=== PATIENT | male | born 1990 | race Caucasian/White ===

== ENCOUNTER 2018-05-30 17:27 | Emergency (ER) | payer SELFPAY ==
[2018-05-30] MEDS ORDERED: KETOROLAC TROMETHAMINE INJ/PF 30 MG/1 ML SDV IV ONE (18:34)
[2018-05-30] MEDS ORDERED: NORMAL SALINE 1000 ML 1,000 ML IV ONE ×2 (18:34→19:27)
[2018-05-30] MEDS ORDERED: MORPHINE SULFATE 10 MG/ML INJ IV ONE (18:34)
[2018-05-30] MEDS ORDERED: ONDANSETRON HCL INJ/PF 4 MG/2 ML SDV IV ONE (18:34)
[2018-05-30] MEDS ORDERED: DIAZEPAM 2 MG TABLET PO ONE (18:36)
--- NOTE | 2018-05-30 18:38 | ER Document Report ---
ED Medical Screen (RME) - General Chief Complaint: Vomiting Stated Complaint: VOMITING BLOOD/ABDOMINAL PAIN Time Seen by Provider: 05/30/18 18:27 Notes: 27 years old male has been vomiting for the last 4-5 days, today while he was doing strenuous work at the workplace suddenly felt a sharp pain on the left mid rectus abdominal muscle region. And since then each time he straighten his back the pain is increased in intensity he has to flex his body to partially relieve the pain. He also noted today while vomiting some blood. Denies any constipation but states he has bowel movement once in 2-3 days. No fever chills or other constitutional symptoms. Denies any dysuria frequency urgency. No significant past medical history Smokes cigarettes and cannabis On examination-sharp tenderness over the left lower rectus abdominal muscles were noted with ventral hernia on coughing. TRAVEL OUTSIDE OF THE [place] IN LAST 30 DAYS: No - Related Data Allergies/Adverse Reactions: No Known Allergies Allergy (Unverified 05/30/18 18:26) Past Medical History - Social History Chew tobacco use (# tins/day): No Renal/ Medical History: Denies: Hx Peritoneal Dialysis Physical Exam - Vital signs Vitals: Temp Pulse Resp BP Pulse Ox 99.0 F 92 16 149/74 H 99 05/30/18 18:14 05/30/18 18:14 05/30/18 18:14 05/30/18 18:14 05/30/18 18:14 Course - Vital Signs Vital signs: Temp Pulse Resp BP Pulse Ox 99.0 F 92 16 149/74 H 99 05/30/18 18:14 05/30/18 18:14 05/30/18 18:14 05/30/18 18:14 05/30/18 18:14
[2018-05-30 19:16] LABS: ABSOLUTE BASOPHILS # (AUTO) 0.1 10^3/uL (0.0-0.2); ABSOLUTE LYMPHOCYTES (AUTO) 1.1 10^3/uL (0.5-4.7); ABSOLUTE MONOCYTES (AUTO) 0.7 10^3/uL (0.1-1.4); ABSOLUTE NEUT (AUTO) 14.1 10^3/uL (1.7-8.2); BASOPHILS % (AUTO) 0.3 % (0-2); EOSINOPHILS % (AUTO) 0.2 % (0-6); HEMATOCRIT 53.9 % (37.9-51.0); MEAN CORPUSCULAR HEMOGLOBIN 30.9 pg (27.0-33.4); MEAN CORPUSCULAR HGB CONC 35.3 g/dL (32.0-36.0); MEAN CORPUSCULAR VOLUME 88 fl (80-97); MONOCYTES % (AUTO) 4.2 % (3-13); PLATELET COUNT 222 10^3/uL (150-450); RED BLOOD COUNT 6.16 10^6/uL (4.35-5.55); RED CELL DISTRIBUTION WIDTH 13.3 % (11.5-14.0); SEGMENTED NEUTROPHILS % (AUTO) 88.3 % (42-78); TOTAL CELLS COUNTED % (AUTO) 100 %; WHITE BLOOD COUNT 15.9 10^3/uL (4.0-10.5)
--- NOTE | 2018-05-30 19:30 | ER Document Report ---
ED GI/ - General Chief Complaint: Vomiting Stated Complaint: VOMITING BLOOD/ABDOMINAL PAIN Time Seen by Provider: 05/30/18 18:27 Notes: Patient is a 27 year old male that comes to the ED for chief complaint of upper abdominal pain, vomiting, and an episode earlier where he vomited some blood. He states there is mixed in blood in the vomit. He states for the past week every morning when he gets up he vomits once but over the past day he has had several episodes of vomiting with the latest having some blood in it. He denies black stools, states had a bowel movement yesterday that was normal, denies fever or chills. He denies any surgeries, denies any daily medications, occasionally takes ibuprofen. He has been working outside all day. He notes that he can barely move without getting bad muscle cramps. He states that he does smoke, he drinks occasional alcohol, he smokes marijuana occasionally, denies other recreational drugs. TRAVEL OUTSIDE OF THE [place] IN LAST 30 DAYS: No - Related Data Allergies/Adverse Reactions: No Known Allergies Allergy (Unverified 05/30/18 18:26) Past Medical History - General Information source: Patient - Social History Smoking Status: Current Every Day Smoker Chew tobacco use (# tins/day): No Smoking Education Provided: Yes - <3 min Frequency of alcohol use: Occasional Drug Abuse: None Lives with: Family Family History: Reviewed & Not Pertinent Patient has suicidal ideation: No Patient has homicidal ideation: No Renal/ Medical History: Denies: Hx Peritoneal Dialysis - Immunizations Hx Diphtheria, Pertussis, Tetanus Vaccination: Yes Review of Systems - Review of Systems Constitutional: See HPI EENT: No symptoms reported Cardiovascular: No symptoms reported Respiratory: No symptoms reported Gastrointestinal: See HPI Genitourinary: No symptoms reported Male Genitourinary: No symptoms reported Musculoskeletal: No symptoms reported Skin: No symptoms reported Hematologic/Lymphatic: No symptoms reported Neurological/Psychological: No symptoms reported Physical Exam - Vital signs Vitals: Temp Pulse Resp BP Pulse Ox 99.0 F 92 16 149/74 H 99 05/30/18 18:14 05/30/18 18:14 05/30/18 18:14 05/30/18 18:14 05/30/18 18:14 - Notes Notes: GENERAL: Alert, interacts well. Patient is very dirty and sweaty EYES: Pupils equal, round, and reactive to light. Extraocular movements intact. ENT: Oral mucosa very dry, tongue midline. NECK: Full range of motion. Supple. Trachea midline. LUNGS: Clear to auscultation bilaterally, no wheezes, rales, or rhonchi. No respiratory distress. HEART: Regular rate and rhythm. No murmur ABDOMEN: Generalized upper abdominal tenderness. No hernia noted. No guarding. Non-distended. Bowel sounds present in all 4 quadrants. EXTREMITIES: Moves all 4 extremities spontaneously. No edema, normal radial and dorsalis pedis pulses bilaterally. No cyanosis. BACK: no cervical, thoracic, lumbar midline tenderness. No saddle anesthesia, normal distal neurovascular exam. NEUROLOGICAL: Alert and oriented x3. Normal speech. [cranial nerves II through XII grossly intact]. PSYCH: Normal affect, normal mood. SKIN: Sweaty and dirty, otherwise unremarkable Course - Re-evaluation Re-evalutation: Patient with dry mucous membranes, generalized upper abdominal tenderness, appears to have been working outside all day. His described symptoms of vomiting in the morning and then having progressive symptoms which resulted in multiple episodes of vomiting and vomiting a small amount of blood today are suggestive of upper abdominal inflammation. He denies any black or bloody stools. Ultrasound was performed of the abdomen and this is unremarkable except for questionable dilated duct. Initial CBC and chemistry are concerning , leukocytosis, elevated hemoglobin consistent with dehydration, acute renal insufficiency, hyperkalemia, dehydration shift. Surprisingly CK is normal. Labs repeated after hydration, patient tolerating p.o. without any difficulty, no additional vomiting, no additional complaints. He states he feels much better now. CBC much improved, hyperkalemia resolved, acute renal insufficiency almost completely resolved. Bilirubin and liver functioning tests normalized instead of worsening. As result I have very low suspicion of common bile duct dilation from obstruction, appears to be gastritis/esophagitis with acute dehydration and heat stroke. Discussed with patient and , discussed return precautions in detail, discussed follow-up, provided with work note for tomorrow for patient to rest, they state understanding and agreement with plan. - Vital Signs Vital signs: Temp Pulse Resp BP Pulse Ox 99.0 F 80 14 138/80 H 99 05/30/18 18:14 05/31/18 01:27 05/31/18 01:27 05/31/18 01:27 05/30/18 18:14 - Laboratory Result Diagrams: 05/30/18 23:31 05/30/18 23:31 Laboratory results interpreted by me: 05/30/18 05/30/18 05/30/18 18:58 18:58 18:58 WBC 15.9 H RBC 6.16 H Hgb 19.0 H Hct 53.9 H Seg Neutrophils % 88.3 H Lymphocytes % 7.0 L Absolute Neutrophils 14.1 H Potassium 5.6 H Chloride 94 L Anion Gap 23 H BUN 28 H Creatinine 2.12 H Est GFR ( Amer) 45 L Est GFR (Non-Af Amer) 37 L Calcium 11.9 H Total Bilirubin 1.4 H Direct Bilirubin 0.5 H AST 67 H ALT 151 H Total Protein 11.1 H Albumin 6.4 H Urine Protein 100 H Urine Ketones TRACE H Urine Blood SMALL H Urine Bilirubin SMALL H Urine Urobilinogen 4.0 H Ur Leukocyte Esterase TRACE H 05/30/18 05/30/18 23:31 23:31 WBC 12.0 H RBC Hgb Hct Seg Neutrophils % Lymphocytes % Absolute Neutrophils Potassium Chloride Anion Gap BUN 26 H Creatinine 1.39 H Est GFR ( Amer) Est GFR (Non-Af Amer) Calcium Total Bilirubin Direct Bilirubin AST ALT 108 H Total Protein Albumin Urine Protein Urine Ketones Urine Blood Urine Bilirubin Urine Urobilinogen Ur Leukocyte Esterase Discharge - Discharge Clinical Impression: Dehydration, Hyperkalemia, Acute renal insufficiency Vomiting Qualifiers: Vomiting type: unspecified Vomiting Intractability: non-intractable Nausea presence: with nausea Qualified Code(s): R11.2 - Nausea with vomiting, unspecified Condition: Stable Disposition: HOME, SELF-CARE Additional Instructions: Your evaluation is consistent with heatstroke, dehydration, acute renal insufficiency, and abnormal electrolytes. This was almost completely resolved with treatment here. Drink plenty of fluids over the next day, rest, take Carafate and Pepcid as prescribed. Take Phenergan if needed for nausea. Your symptoms are also consistent with gastritis, along with the medications above avoid alcohol, smoking, NSAIDs, caffeine, spicy food. Follow-up with primary care for additional management. Return if you worsen including returned vomiting, vomiting blood, black stools, severe abdominal pain, passing out, fever, or any other concerning symptoms. Prescriptions: Famotidine [Pepcid 20 mg Tablet] 20 mg PO BID #20 tablet Promethazine HCl [Phenergan 25 mg Tablet] 25 mg PO Q6H PRN #20 tablet PRN Reason: Sucralfate [Carafate 1 gm Tablet] 1 gm PO QID #20 tablet Forms: Return to Work
[2018-05-30 19:33] LABS: ALANINE AMINOTRANSFERASE 151 U/L (21-72); ALKALINE PHOSPHATASE 64 U/L (38-126); ASPARTATE AMINO TRANSFERASE 67 U/L (17-59); BILIRUBIN,DIRECT 0.5 mg/dL (0.0-0.4); BILIRUBIN,TOTAL 1.4 mg/dL (0.2-1.3); BLOOD UREA NITROGEN 28 mg/dL (7-20); GLUCOSE 104 mg/dL (75-110); LIPASE 94.8 U/L (23-300); POTASSIUM 5.6 mmol/L (3.6-5.0)
[2018-05-30 19:38] LABS: CARBON DIOXIDE 25 mmol/L (22-30); CHLORIDE 94 mmol/L (98-107); SODIUM 141.5 mmol/L (137-145)
[2018-05-30 19:39] LABS: CALCIUM 11.9 mg/dL (8.4-10.2)
[2018-05-30 19:40] LABS: APPEARANCE,URINE CLOUDY; BILIRUBIN,URINE SMALL (NEGATIVE); GLUCOSE, URINE NEGATIVE (NEGATIVE); KETONES,URINE TRACE mg/dL (NEGATIVE); LEUKOCYTE ESTERASE,URINE TRACE (NEGATIVE); NITRITE,URINE NEGATIVE (NEGATIVE); PROTEIN,URINE 100 mg/dL (NEGATIVE); URINE SPECIFIC GRAVITY 1.023
[2018-05-30 19:41] LABS: COLOR,URINE YELLOW
[2018-05-30 19:57] LABS: ALBUMIN 6.4 g/dL (3.5-5.0); ANION GAP 23 (5-19); TOTAL PROTEIN 11.1 g/dL (6.3-8.2)
--- NOTE | 2018-05-30 21:37 | RADIOLOGY REPORT (SQ) ---
EXAM DESCRIPTION: U/S ABDOMEN LIMITED W/O DOP COMPLETED DATE/TIME: 05/30/2018 9:23 pm REASON FOR STUDY: upper abd pain, vomiting COMPARISON: None. TECHNIQUE: Dynamic and static grayscale images acquired of the abdomen and recorded on PACS. Kalyno kennedy selected color Doppler and spectral images recorded. LIMITATIONS: None. FINDINGS: PANCREAS: No masses. Visualized pancreatic duct normal caliber. LIVER: 13.2 cm. Normal echotexture. LIVER VASCULATURE: Normal directional flow of the main portal vein and hepatic veins. GALLBLADDER: No stones. Normal wall thickness. No pericholecystic fluid. ULTRASOUND-DETECTED POON'S SIGN: Negative. INTRAHEPATIC DUCTS AND COMMON DUCT: Common bile duct is borderline at 6 mm. INFERIOR VENA CAVA: Normal flow. AORTA: No aneurysm. RIGHT KIDNEY: Normal size, 11.9 cm. Normal echogenicity. No solid or suspicious masses. No hydroneph rosis. No calcifications. PERITONEAL AND RIGHT PLEURAL SPACE: No ascites or effusions. OTHER: No other significant findings. IMPRESSION: Borderline common bile duct is 6 mm. Correlate for biliary obstruction. The gallbladde r is normal. TECHNICAL DOCUMENTATION: JOB ID: [id number] [employer]- All Rights Reserved Reading location - IP/workstation name: [email or web address]
[2018-05-30] MEDS ORDERED: SUCRALFATE 1 GM TABLET PO ONE (22:03)
[2018-05-30] MEDS ORDERED: FAMOTIDINE 20 MG TABLET PO ONE (22:03)
[2018-05-30] MEDS ORDERED: OXYCODONE-ACETAMINOPHEN 5-325 MG TABLET PO ONE (22:05)
[2018-05-30 23:43] LABS: HEMATOCRIT 45.4 % (37.9-51.0); MEAN CORPUSCULAR HEMOGLOBIN 30.9 pg (27.0-33.4); MEAN CORPUSCULAR HGB CONC 35.3 g/dL (32.0-36.0); MEAN CORPUSCULAR VOLUME 88 fl (80-97); PLATELET COUNT 168 10^3/uL (150-450); RED BLOOD COUNT 5.19 10^6/uL (4.35-5.55); RED CELL DISTRIBUTION WIDTH 13.1 % (11.5-14.0)
[2018-05-30 23:44] LABS: HEMOGLOBIN 16.1 g/dL (13.5-17.0)
[2018-05-30 23:52] LABS: ALANINE AMINOTRANSFERASE 108 U/L (21-72); ALBUMIN 4.7 g/dL (3.5-5.0); ALKALINE PHOSPHATASE 42 U/L (38-126); ANION GAP 12 (5-19); ASPARTATE AMINO TRANSFERASE 45 U/L (17-59); BILIRUBIN,DIRECT 0.2 mg/dL (0.0-0.4); BILIRUBIN,TOTAL 1.1 mg/dL (0.2-1.3); BLOOD UREA NITROGEN 26 mg/dL (7-20); CALCIUM 9.3 mg/dL (8.4-10.2); CARBON DIOXIDE 26 mmol/L (22-30); CHLORIDE 102 mmol/L (98-107); GLUCOSE 96 mg/dL (75-110)
[2018-05-30 23:56] LABS: POTASSIUM 4.6 mmol/L (3.6-5.0)
[2018-05-31] MEDS ORDERED: ONDANSETRON ODT 4 MG TAB (6 TAB/ER DISP) PO PRN (00:02)
[2018-05-31 01:30] VITALS: BP 138/80
--- NOTE | 2018-05-31 07:30 | EKG REPORT ---
SEVERITY:- NORMAL ECG - SINUS RHYTHM : Confirmed by: Abelardo Hooper MD 31-May-2018 07:29:42
== END 2018-05-31 01:30 | disposition home or self-care (01) ==
LOC: ER 17:27
DX: E86.0 Dehydration (principal); E87.5 Hyperkalemia; N28.9 Disorder of kidney and ureter, unspecified; R11.2 Nausea with vomiting, unspecified; R10.10 Upper abdominal pain, unspecified; F17.200 Nicotine dependence, unspecified, uncomplicated
CPT/HCPCS: 93005; 99284; 96361; 96374; 96375; 36415; 82550; 83690; 85025; 85027; 80053; 81001; 76705; 93010; J3490; J1885; J2270; J2405; J7030

== ENCOUNTER 2019-05-29 06:00 | Emergency (ER) | payer SELFPAY ==
[2019-05-29 06:45] LABS: APPEARANCE,URINE CLEAR; BILIRUBIN,URINE NEGATIVE (NEGATIVE); COLOR,URINE YELLOW; GLUCOSE, URINE NEGATIVE (NEGATIVE); KETONES,URINE TRACE mg/dL (NEGATIVE); LEUKOCYTE ESTERASE,URINE NEGATIVE (NEGATIVE); NITRITE,URINE NEGATIVE (NEGATIVE); PROTEIN,URINE NEGATIVE (NEGATIVE); URINE SPECIFIC GRAVITY 1.026
--- NOTE | 2019-05-29 06:49 | ER Document Report ---
ED Psych Disorder / Suicide - General Chief Complaint: Psych Problem Stated Complaint: PSYCH Time Seen by Provider: 05/29/19 06:34 Mode of Arrival: Ambulatory Information source: Patient, Friend, [facility] Records Notes: This 28-year-old male patient brought the emergency room by his friend for depr ession and suicidal ideation. Patient states he has been wanting to hurt himself and thinking about hurting other people around him who are trying to be helpful. He states is been going on for greater than 1 year. He has a fairly long history of substance abuse with his spouse as a participant. Recently his spouse decided to stop and straighten out her life, he was unwilling to, so 2 and half weeks ago she left with their child. Since this occurred, his drug abuse is increased, his depression is increased. Patient states he last slept about 4 hours on Sunday night. His last alcohol was few days ago, where he had 1 or 2 beers. A day or so before that he drank over case. His last drug use was crack cocaine this evening. He uses THC, meth, crack, reports some heroin use 2 years ago. He has never sought help for substance abuse in the past. He is gainfully employed with a [employer]. TRAVEL OUTSIDE OF THE [place] IN LAST 30 DAYS: No - Related Data Allergies/Adverse Reactions: No Known Allergies Allergy (Verified 05/29/19 06:01) Past Medical History - General Information source: Patient, Friend, [facility] Records - Social History Smoking Status: Current Every Day Smoker Cigarette use (# per day): Yes - Normally 1/2 PPD Chew tobacco use (# tins/day): No Smoking Education Provided: No Frequency of alcohol use: Heavy Drug Abuse: Cocaine, Marijuana, Methamphetamine Occupation: Global Engineering Manager Lives with: Alone Family History: Reviewed & Not Pertinent Patient has suicidal ideation: Yes Patient has homicidal ideation: No - Medical History Medical History: Negative Surgical Hx: Negative - Immunizations Hx Diphtheria, Pertussis, Tetanus Vaccination: Yes Review of Systems - Review of Systems Constitutional: No symptoms reported EENT: No symptoms reported Cardiovascular: No symptoms reported Respiratory: No symptoms reported Gastrointestinal: No symptoms reported Genitourinary: No symptoms reported Musculoskeletal: No symptoms reported Skin: No symptoms reported Hematologic/Lymphatic: No symptoms reported Neurological/Psychological: Depression, Suicidal ideation Physical Exam - Vital signs Vitals: Temp Pulse Resp BP Pulse Ox 98.4 F 103 H 20 175/105 H 97 05/29/19 06:06 05/29/19 06:06 05/29/19 06:06 05/29/19 06:06 05/29/19 06:06 - General General appearance: Appears well, Alert In distress: None Notes: Depressed, mostly looks downward avoiding eye contact. - HEENT Head: Normocephalic, Atraumatic Eyes: Normal Pupils: PERRL - Respiratory Respiratory status: No respiratory distress - Cardiovascular Rhythm: Regular Heart sounds: Normal auscultation Murmur: No - Abdominal Inspection: Normal - Back Back: Normal - Extremities General upper extremity: Normal inspection General lower extremity: Normal inspection - Neurological Neuro grossly intact: Yes - Psychological Associated symptoms: Depressed, Unable to sleep, Other - Poor eye contact - Skin Skin Temperature: Warm Skin Moisture: Dry Skin Color: Normal Course - Vital Signs Vital signs: Temp Pulse Resp BP Pulse Ox 98.4 F 103 H 20 175/105 H 97 05/29/19 06:06 05/29/19 06:06 05/29/19 06:06 05/29/19 06:06 05/29/19 06:06 - Laboratory Result Diagrams: 05/29/19 06:24 05/29/19 06:24 Laboratory results interpreted by me: 05/29/19 05/29/19 06:24 06:24 Glucose 116 H Albumin 5.1 H Urine Ketones TRACE H Urine Urobilinogen 2.0 H Salicylates < 1.0 L Acetaminophen < 10 L - EKG Interpretation by Mn EKG shows normal: Sinus rhythm, [place], Intervals, QRS Complexes, ST-T Waves Rate: Normal - 90 Rhythm: NSR Discharge - Discharge Clinical Impression: Suicidal ideation, Multiple substance abuse, Cocaine abuse Depression Qualifiers: Depression Type: unspecified Qualified Code(s): F32.9 - Major depressive disorder, single episode, unspecified Condition: Stable Disposition: PSYCH HOSP/UNIT
[2019-05-29 06:59] LABS: ABSOLUTE BASOPHILS # (AUTO) 0.1 10^3/uL (0.0-0.2); ABSOLUTE EOSINOPHILS # (AUTO) 0.1 10^3/uL (0.0-0.6); ABSOLUTE LYMPHOCYTES (AUTO) 1.7 10^3/uL (0.5-4.7); ABSOLUTE MONOCYTES (AUTO) 0.8 10^3/uL (0.1-1.4); ABSOLUTE NEUT (AUTO) 6.9 10^3/uL (1.7-8.2); BASOPHILS % (AUTO) 0.5 % (0-2); EOSINOPHILS % (AUTO) 0.7 % (0-6); HEMATOCRIT 45.5 % (37.9-51.0); HEMOGLOBIN 15.9 g/dL (13.5-17.0); LYMPHOCYTES % (AUTO) 17.7 % (13-45); MEAN CORPUSCULAR HGB CONC 34.9 g/dL (32.0-36.0); MEAN CORPUSCULAR VOLUME 89 fl (80-97); MONOCYTES % (AUTO) 8.4 % (3-13); PLATELET COUNT 154 10^3/uL (150-450); RED BLOOD COUNT 5.12 10^6/uL (4.35-5.55); RED CELL DISTRIBUTION WIDTH 13.9 % (11.5-14.0); SEGMENTED NEUTROPHILS % (AUTO) 72.7 % (42-78); TOTAL CELLS COUNTED % (AUTO) 100 %; URINE AMPHETAMINES SCREEN NEGATIVE; URINE BARBITURATES SCREEN NEGATIVE; URINE BENZODIAZEPINES SCREEN NEGATIVE; URINE COCAINE SCREEN UNCONFIRMED POSITIVE; URINE MARIJUANA (THC) SCREEN NEGATIVE; URINE METHADONE SCREEN NEGATIVE; URINE PHENCYCLIDINE SCREEN NEGATIVE; WHITE BLOOD COUNT 9.4 10^3/uL (4.0-10.5)
[2019-05-29 07:03] LABS: ALBUMIN 5.1 g/dL (3.5-5.0); ALKALINE PHOSPHATASE 56 U/L (38-126); ANION GAP 13 (5-19); ASPARTATE AMINO TRANSFERASE 29 U/L (17-59); BILIRUBIN,DIRECT 0.1 mg/dL (0.0-0.4); BILIRUBIN,TOTAL 1.1 mg/dL (0.2-1.3); BLOOD UREA NITROGEN 13 mg/dL (7-20); CALCIUM 9.8 mg/dL (8.4-10.2); CARBON DIOXIDE 26 mmol/L (22-30); CHLORIDE 103 mmol/L (98-107); GLUCOSE 116 mg/dL (75-110); POTASSIUM 3.7 mmol/L (3.6-5.0)
[2019-05-29 07:04] LABS: ACETAMINOPHEN < 10 ug/mL (10-30); ALCOHOL < 10 mg/dL (NONE DETECTED); SALICYLATE < 1.0 mg/dL (2.0-20.0)
--- NOTE | 2019-05-29 11:24 | EKG REPORT ---
SEVERITY:- NORMAL ECG - SINUS RHYTHM : Confirmed by: Annabel Luis 29-May-2019 11:24:24
[2019-05-29 11:41] LABS: CREATINE KINASE 103 U/L (55-170)
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
[2019-05-29 16:44] VITALS: BP 134/87
== END 2019-05-29 16:49 ==
LOC: ER 06:00
DX: F32.9 Major depressive disorder, single episode, unspecified (principal); R45.851 Suicidal ideations; F14.10 Cocaine abuse, uncomplicated; F15.10 Other stimulant abuse, uncomplicated; F12.10 Cannabis abuse, uncomplicated; F17.210 Nicotine dependence, cigarettes, uncomplicated; Z63.5 Disruption of family by separation and divorce
CPT/HCPCS: 36415; 80053; 80307; 81001; 82550; 85025; 93005; 93010; 99285